=== PATIENT | female | born 1955 | race Caucasian/White ===

== ENCOUNTER 2019-02-04 09:11 | Inpatient (IN) | payer SELFPAY ==
[2019-02-04] VITALS (13 sets, daily range): BP systolic 97–155; BP diastolic 54–84
[~2019-02-04] VITALS: Ht 165.1 cm; Wt 51.3 kg
[2019-02-04] MEDS ORDERED: METOPROL TAR25 M1 PO (09:22)
[2019-02-04] MEDS ORDERED: BENZONATATE200 MG PO (09:23)
[2019-02-04] MEDS ORDERED: LISINOPRIL2.5 MG PO (09:23)
[2019-02-04] MEDS ORDERED: SPIRIVA RE2.5 MCG/AC IN (09:24)
[2019-02-04] MEDS ORDERED: SYMBICORT1 AE1 IN (09:25)
[2019-02-04] MEDS ORDERED: PROAIR HFA108 MCG/AC IN (09:25)
[2019-02-04] MEDS ORDERED: DUONEB IN (09:26)
[2019-02-04 09:46] LABS: HEMATOCRIT 47.7 % (37.0-47.0); HEMOGLOBIN 15.7 g/dl (12.0-16.0); IMMATURE GRANULOCYTES 0.3 % (0.0-5.0); MEAN CELL VOLUME 92.4 fL CALC (80.0-100.0); MEAN CORPUSCULAR HGB 30.4 pG CALC (26.0-32.0); MEAN CORPUSCULAR HGB CONC 32.9 g/L CALC (32.0-36.0); NEUT# 7.95 thou/uL (2.00-7.15); RED BLOOD COUNT 5.16 mill/uL (4.20-5.60); RED CELL DISTRI WIDTH 12.2 % (11.5-15.5)
[2019-02-04 10:16] LABS: ANION GAP 11 (6-22 (CALC)); BUN 9 mg/dL (8-23); BUN/CREATININE RATIO 33 (12-20 (CALC)); CARBON DIOXIDE 32 mmol/l (22-30); CHLORIDE 98 mmol/l (95-108); CREATININE 0.3 mg/dL (0.5-1.0); GFR > 60 ML/MIN (>=60 (CALC)); GFR FOR AFR.AMER. > 60 ML/MIN (>=60 (CALC)); POTASSIUM 4.2 mmol/l (3.5-5.1); SODIUM 136 mmol/l (137-146)
[2019-02-05] VITALS (15 sets, daily range): BP systolic 80–117; BP diastolic 44–74
[2019-02-05 04:29] LABS: HEMATOCRIT 45.2 % (37.0-47.0); HEMOGLOBIN 14.7 g/dl (12.0-16.0); IMMATURE GRANULOCYTES 0.4 % (0.0-5.0); MEAN CELL VOLUME 94.4 fL CALC (80.0-100.0); MEAN CORPUSCULAR HGB 30.7 pG CALC (26.0-32.0); MEAN CORPUSCULAR HGB CONC 32.5 g/L CALC (32.0-36.0); NEUT# 5.63 thou/uL (2.00-7.15); RED BLOOD COUNT 4.79 mill/uL (4.20-5.60); RED CELL DISTRI WIDTH 12.1 % (11.5-15.5)
[2019-02-05 04:47] LABS: ANION GAP 10 (6-22 (CALC)); BUN 14 mg/dL (8-23); BUN/CREATININE RATIO 45 (12-20 (CALC)); CARBON DIOXIDE 33 mmol/l (22-30); CHLORIDE 99 mmol/l (95-108); CREATININE 0.3 mg/dL (0.5-1.0); GFR > 60 ML/MIN (>=60 (CALC)); GFR FOR AFR.AMER. > 60 ML/MIN (>=60 (CALC)); POTASSIUM 4.8 mmol/l (3.5-5.1); SODIUM 138 mmol/l (137-146)
== END 2019-02-05 15:34 | disposition short-term general hospital (02) | DRG 189 ==
LOC: ED 09:11 → ED-I 10:22 → ED 11:12 → ICU 11:13
PROVIDERS: Family Medicine; ADMIT Internal Medicine; ATTEND Internal Medicine
PROC: 5A09457 Assistance with Respiratory Ventilation, 24-96 Consecutive Hours, Continuous Positive Airway Pressure (ICD-10-PCS; principal; 2019-02-04)
DX: J96.01 Acute respiratory failure with hypoxia (principal); J44.1 Chronic obstructive pulmonary disease with (acute) exacerbation; C34.90 Malignant neoplasm of unspecified part of unspecified bronchus or lung; J96.02 Acute respiratory failure with hypercapnia; I10 Essential (primary) hypertension; Z91.19 Patient's noncompliance with other medical treatment and regimen
CPT/HCPCS: J2060; J3370

== ENCOUNTER 2019-02-12 11:21 | Emergency (ER) | payer SELFPAY ==
[~2019-02-12] VITALS: Ht 165.1 cm; Wt 45.0 kg
[~2019-02-12 11:21] MED LIST: BENZONATATE200 MG PO; DUONEB IN; LISINOPRIL2.5 MG PO; METOPROL TAR25 M1 PO; PROAIR HFA108 MCG/AC IN; SPIRIVA RE2.5 MCG/AC IN; SYMBICORT1 AE1 IN
[2019-02-12 12:19] LABS: HEMATOCRIT 52.9 % (37.0-47.0); HEMOGLOBIN 16.4 g/dl (12.0-16.0); IMMATURE GRANULOCYTES 1.2 % (0.0-5.0); MEAN CORPUSCULAR HGB 30.4 pG CALC (26.0-32.0); NEUT# 21.98 thou/uL (2.00-7.15); RED BLOOD COUNT 5.4 mill/uL (4.20-5.60); RED CELL DISTRI WIDTH 12.7 % (11.5-15.5)
[2019-02-12 12:32] LABS: ALBUMIN 3.8 g/dL (3.2-5.0); ALKALINE PHOSPHATASE 91 u/l (38-126); ANION GAP 13 (6-22 (CALC)); BILIRUBIN, TOTAL 0.8 mg/dL (0.0-1.4); BUN 19 mg/dL (8-23); BUN/CREATININE RATIO 62 (12-20 (CALC)); CARBON DIOXIDE 33 mmol/l (22-30); CHLORIDE 99 mmol/l (95-108); CREATININE 0.3 mg/dL (0.5-1.0); GFR > 60 ML/MIN (>=60 (CALC)); GFR FOR AFR.AMER. > 60 ML/MIN (>=60 (CALC)); POTASSIUM 4.9 mmol/l (3.5-5.1); SGOT/AST 78 u/l (9-36); SODIUM 139 mmol/l (137-146); TOTAL PROTEIN 6.6 g/dL (6.3-8.2)
[2019-02-12 12:45] LABS: MYOGLOBIN 85 ng/mL (0 - 62)
[2019-02-12] MEDS ORDERED: ASPIRIN ADULT L81 M2 PO (13:38)
[2019-02-12] MEDS ORDERED: RANITIDINE150 M1 PO (13:39)
[2019-02-12] MEDS ORDERED: PREDNISONE20 MG PO (13:43)
[2019-02-12 14:20] VITALS: BP 106/58
== END 2019-02-12 14:20 | disposition short-term general hospital (02) | DRG 204 ==
LOC: ED 11:21
PROVIDERS: Emergency Medicine
DX: R06.02 Shortness of breath (principal); J96.92 Respiratory failure, unspecified with hypercapnia; J18.9 Pneumonia, unspecified organism; E87.2 Acidosis; R73.9 Hyperglycemia, unspecified